=== PATIENT | male | born 1990 | race African-American/Black ===

== ENCOUNTER 2016-07-31 19:32 | Emergency (ER) | payer OTHER ==
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
[2016-07-31] MEDS ORDERED: VOLTAREN75 MG PO (21:20)
[2016-07-31] MEDS ORDERED: ZOFRAN ODT4 M1 PO (21:20)
[2016-07-31] MEDS ORDERED: TYLENOL #3 PO (21:21)
== END 2016-07-31 21:21 | disposition home or self-care (01) ==
LOC: SED 19:32
DX: S43.51XA Sprain of right acromioclavicular joint, initial encounter (principal); Z79.899 Other long term (current) drug therapy; W18.39XA Other fall on same level, initial encounter; Y92.830 Public park as the place of occurrence of the external cause
CPT/HCPCS: 73030; 96374; 96375; 99283; 99284; J1170; J2405; J2765; J3360